=== PATIENT | female | born 1970 | race Caucasian/White ===

== ENCOUNTER 2020-12-25 14:40 | Emergency (ER) | payer MEDICAID ==
[~2020-12-25] VITALS: Ht 162.6 cm; Wt 70.0 kg
[2020-12-25 14:46] VITALS: BP 133/81
[2020-12-25] MEDS ORDERED: ACETAMINOPHEN 325MG TABLET PO ONE (15:30)
[2020-12-25] MEDS ORDERED: METHOCARBAMOL 500MG TABLET PO ONE (15:30)
== END 2020-12-25 16:10 | disposition left against medical advice (07) ==
LOC: ER 14:40
DX: M54.2 Cervicalgia (principal); W22.09XA Striking against other stationary object, initial encounter; Y93.89 Activity, other specified; Y92.811 Bus as the place of occurrence of the external cause
CPT/HCPCS: 99283